=== PATIENT | female | born 1985 | race Two or more races ===

== ENCOUNTER → 2024-09-06 08:52 | Outpatient (CLI) | payer OTHER | END | disposition home or self-care (01) | LOC: PRENATAL 08:52 | PROVIDERS: ATTEND Obstetrics & Gynecology Maternal & Fetal Medicine | DX: O36.80X0 Pregnancy with inconclusive fetal viability, not applicable or unspecified (principal); Z36.82 Encounter for antenatal screening for nuchal translucency; Z14.8 Genetic carrier of other disease; O09.519 Supervision of elderly primigravida, unspecified trimester; Z3A.13 13 weeks gestation of pregnancy ==

== ENCOUNTER → 2024-09-13 07:58 | Outpatient (CLI) | payer OTHER | END | disposition home or self-care (01) | LOC: PRENATAL 07:58 | PROVIDERS: ATTEND Obstetrics & Gynecology Maternal & Fetal Medicine | DX: O36.80X0 Pregnancy with inconclusive fetal viability, not applicable or unspecified (principal); O28.3 Abnormal ultrasonic finding on antenatal screening of mother; O09.519 Supervision of elderly primigravida, unspecified trimester; O36.1999 Maternal care for other isoimmunization, unspecified trimester, other fetus; Z3A.13 13 weeks gestation of pregnancy ==

== ENCOUNTER 2024-09-13 08:22 | Outpatient (CLI) | payer OTHER | END 2024-09-13 08:23 | disposition home or self-care (01) | LOC: LAB 08:22 | PROVIDERS: ATTEND Obstetrics & Gynecology Maternal & Fetal Medicine | DX: O28.5 Abnormal chromosomal and genetic finding on antenatal screening of mother (principal); O28.3 Abnormal ultrasonic finding on antenatal screening of mother ==